=== PATIENT | female | born 1970 | race Caucasian/White ===

== ENCOUNTER 2017-08-28 16:54 | Emergency (ER) | payer MEDICAID ==
[~2017-08-28] VITALS: Ht 165.1 cm; Wt 91.7 kg
[2017-08-28 16:55] VITALS: BP 113/77
== END 2017-08-28 17:35 | disposition home or self-care (01) ==
LOC: ED 17:29
DX: L02.211 Cutaneous abscess of abdominal wall (principal)
CPT/HCPCS: 99282